=== PATIENT | male | born 1970 ===

== ENCOUNTER 2023-08-10 07:23 | Outpatient (CLI) | payer OTHER, SELFPAY ==
[2023-08-10 08:38] LABS: Cortisol Baseline 7.45 ug/dL
== END 2023-08-10 07:24 | disposition home or self-care (01) ==
PROVIDERS: PCP Internal Medicine
DX: J45.909 Unspecified asthma, uncomplicated (principal); J44.9 Chronic obstructive pulmonary disease, unspecified; E03.9 Hypothyroidism, unspecified; D64.9 Anemia, unspecified; E78.5 Hyperlipidemia, unspecified
CPT/HCPCS: 36415; 82533; 96372; J0834